=== PATIENT | male | born 1930 | race Caucasian/White ===

== ENCOUNTER 2016-11-24 12:51 | Outpatient (CLI) | payer OTHER, BC ==
[~2016-11-24 12:51] MED LIST: ALLOPURINOL100 MG PO; ASPIRIN ADULT L81 MG PO; CARDIZEM CD PO; CARVEDILOL12.5 MG PO; CARVEDILOL6.25 MG PO; CETIRIZINE HCL10 MG PO; DALIRESP500 MCG PO; FLOMAX0.4 MG PO; FLUTICASONE PR50 MCG; GAS-X80 MG PO; IPRATROPIUM BROMIDE/ IN; LANTUS SOL100 UNITS/ SC; LEVOFLOXACIN250 MG PO; LISINOPRIL PO; LOSARTAN POTASS50 MG PO; NEURONTIN300 MG PO; NOVOLOG PE100 UNITS/ SC; PATANOL0.1 % IO; PRAVACHOL40 MG; PRILOSEC20 MG; PRILOSEC20 MG PO; PROAIR HFA IN; SYMBICORT1 AE1 IN; TAMSULOSIN HCL0.4 MG PO; TIZANIDINE HCL2 MG PO; TRADJENTA5 MG PO
--- NOTE | 2016-11-24 13:30 | DIAGNOSTIC IMAGING REPORT ---
PROCEDURE: XR CHEST 2 VIEW INDICATION: SOB TECHNIQUE: PA and lateral views. COMPARISON: Chest x-rays 08/18/2016 and 05/17/2015 FINDINGS: Lungs are clear. Cardiovascular structures are normal. Moderate degenerative changes of the spine. No significant interval change. IMPRESSION: 1. Negative chest. 2 Results were called to [facility].
== END 2016-11-24 23:00 ==
LOC: XR SRH 12:51 → LAB SRH 12:51 → XR SRH 23:00
DX: R06.02 Shortness of breath (principal)
CPT/HCPCS: 90074; 90616; 91320

== ENCOUNTER 2017-01-02 15:48 | Emergency (ER) | payer OTHER, BC ==
[2017-01-02 15:50] VITALS: BP 121/45
--- NOTE | 2017-01-03 12:26 | ED MAR SUMMARY ---
..... Medication Administration Record [facility] [address] [place], [place] [id number] Patient: GAETANO BLACK Visit ID: [id number] 86y, M Weight: 117.9 kg Height/Length: 69 in BMI: 38.4 ALLERGIES: Bactrim
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
--- NOTE | 2017-01-03 12:26 | ED MAR SUMMARY ---
..... Medication Administration Record [facility] [address] [place], [place] [id number] Patient: GAETANO BLACK Visit ID: [id number] 86y, M Weight: 117.9 kg Height/Length: 69 in BMI: 38.4 ALLERGIES: Bactrim
--- NOTE | 2017-01-03 12:26 | ED ORDER SUMMARY ---
..... Patient: GAETANO BLACK [facility] VisitID: [id number] [place] [address] 86y, M Registration Date/Time: 01/02/2017 ORDER SHEET Weight: 117.9 kg (estimated) Allergies: Bactrim GENERAL ORDERS: Cardiac Panel Stat (15:58 01/02/2017 Angle CLARKE) (Ack 16:01 IJurca ER Tech1) (16:08 EHassan R.N.) CBC w Diff Urgent (16:09 01/02/2017 EHassan R.N. per protocol) (Ack 16:13 IJurca ER Tech1) CMP Urgent (16:09 01/02/2017 EHassan R.N. per protocol) (Ack 16:13 IJurca ER Tech1) BMP Urgent (16:09 01/02/2017 EHassan R.N. per protocol) (Ack 16:13 IJurca ER Tech1) MEDICATION ORDERS: IV FLUIDS: ORDER SHEET NOTES: [Electronically signed by Milady Grey R.N. (23:21 01/02/2017)] [Electronically signed by Milady Grey R.N. (23:21 01/02/2017)] [Electronically signed by Milady Grey R.N. (23:24 01/02/2017)] [Electronically signed by Niraj Amador MD (12:26 01/03/2017)] [Electronically locked/signed by Milady Grey R.N. (23:21 01/02/2017)]
--- NOTE | 2017-01-03 12:26 | ED MED RECONCILIATION SUMMARY ---
Patient: GAETANO BLACK Medication Reconciliation Report [facility] VisitID: [id number] [place] [address] 86y, M Registration Date/Time: 01/02/2017 Weight: 117.9 kg Height/Length: 69 in. BMI: 38.4 ALLERGIES: Bactrim The patient's Home Medications are listed below: THE FOLLOWING MEDICATIONS NEED TO BE RECONCILED: Albuterol Sulfate HFA Inhalation 2 puffs, 2x a day Allopurinol Oral 100 mg, daily Aspirin Oral (81 mg) 1 tablet, daily Cardizem CD Oral 120mg day Carvedilol Oral (6.25 mg) 1 tablet, BID Flomax Oral 0.4 mg, at bedtime Gas x 80mg chews prn Lantus Subcutaneous 35units at HS Losartan Potassium Oral 50 mg, daily MiraLax Oral 1 packet, 2x a day NovoLOG Subcutaneous 16 units, 2x a day Pravastatin Sodium Oral (40 mg) 1 tablet, daily PriLOSEC Oral 20 mg ProAir HFA Inhalation 2 puffs, q 4 hours prn The source(s) of the original Home Medication information: unable to obtain The following Medications were given to the patient in the Emergency Department: None. The following Medications were prescribed to the patient: None.
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
--- NOTE | 2017-01-03 12:26 | ED ORDER SUMMARY ---
..... Patient: GAETANO BLACK OrderSheet [facility] VisitID: [id number] [place] [address] 86y, M Registration Date/Time: 01/02/2017 ORDER SHEET Weight: 117.9 kg (estimated) Allergies: Bactrim GENERAL ORDERS: Cardiac Panel Stat (15:58 01/02/2017 Angle CLARKE) (Ack 16:01 IJurca ER Tech1) (16:08 EHassan R.N.) CBC w Diff Urgent (16:09 01/02/2017 EHassan R.N. per protocol) (Ack 16:13 IJurca ER Tech1) CMP Urgent (16:09 01/02/2017 EHassan R.N. per protocol) (Ack 16:13 IJurca ER Tech1) BMP Urgent (16:09 01/02/2017 EHassan R.N. per protocol) (Ack 16:13 IJurca ER Tech1) MEDICATION ORDERS: IV FLUIDS: ORDER SHEET NOTES: [Electronically signed by Milady Grey R.N. (23:21 01/02/2017)] [Electronically signed by Milady Grey R.N. (23:21 01/02/2017)] [Electronically signed by Milady Grey R.N. (23:24 01/02/2017)] [Electronically signed by Niraj Amador MD (12:26 01/03/2017)] [Electronically locked/signed by Milady Grey R.N. (23:21 01/02/2017)]
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
--- NOTE | 2017-01-03 12:26 | ED MED RECONCILIATION SUMMARY ---
Patient: GAETANO BLACK Medication Reconciliation Report [facility] VisitID: [id number] [place] [address] 86y, M Registration Date/Time: 01/02/2017 Weight: 117.9 kg Height/Length: 69 in. BMI: 38.4 ALLERGIES: Bactrim The patient's Home Medications are listed below: THE FOLLOWING MEDICATIONS NEED TO BE RECONCILED: Albuterol Sulfate HFA Inhalation 2 puffs, 2x a day Allopurinol Oral 100 mg, daily Aspirin Oral (81 mg) 1 tablet, daily Cardizem CD Oral 120mg day Carvedilol Oral (6.25 mg) 1 tablet, BID Flomax Oral 0.4 mg, at bedtime Gas x 80mg chews prn Lantus Subcutaneous 35units at HS Losartan Potassium Oral 50 mg, daily MiraLax Oral 1 packet, 2x a day NovoLOG Subcutaneous 16 units, 2x a day Pravastatin Sodium Oral (40 mg) 1 tablet, daily PriLOSEC Oral 20 mg ProAir HFA Inhalation 2 puffs, q 4 hours prn The source(s) of the original Home Medication information: unable to obtain The following Medications were given to the patient in the Emergency Department: None. The following Medications were prescribed to the patient: None.
== END 2017-01-02 16:20 | disposition short-term general hospital (02) ==
LOC: ED SRH 15:48
PROC: 0BH17EZ Insertion of Endotracheal Airway into Trachea, Via Natural or Artificial Opening (ICD-10-PCS; principal; 2017-01-02)
DX: S06.9X9A Unspecified intracranial injury with loss of consciousness of unspecified duration, initial encounter (principal); S01.01XA Laceration without foreign body of scalp, initial encounter; R40.2432 Glasgow coma scale score 3-8, at arrival to emergency department; V53.5XXA Driver of pick-up truck or van injured in collision with car, pick-up truck or van in traffic accident, initial encounter; T79.4XXA Traumatic shock, initial encounter; I46.8 Cardiac arrest due to other underlying condition; J96.01 Acute respiratory failure with hypoxia; J96.02 Acute respiratory failure with hypercapnia; S30.1XXA Contusion of abdominal wall, initial encounter